=== PATIENT | male | born 1945 | race Caucasian/White ===

== ENCOUNTER → 2024-11-19 | Outpatient (CLI) | payer MEDICARE ==
[2024-11-19 16:53] LABS: BASOPHILS ABSOLUTE AUTO 0.04 K/mm3 (0.00-0.23); BASOPHILS PERCENT AUTO 0 % (0-2); EOSINOPHILS ABSOLUTE AUTO 0.13 K/mm3 (0.00-0.68); EOSINOPHILS PERCENT AUTO 1 % (0-6); Hematocrit 39.5 % (37.0-53.0); Hemoglobin 13.3 g/dL (13.5-17.5); IMMATURE GRAN ABSOLUTE AUTO 0.03 K/mm3 (0.00-0.10); IMMATURE GRAN PERCENT AUTO 0 % (0-1); LYMPHOCYTES ABSOLUTE AUTO 1.18 K/mm3 (0.84-5.20); LYMPHOCYTES PERCENT AUTO 12 % (21-46); MONOCYTES ABSOLUTE AUTO 0.83 K/mm3 (0.16-1.47); MONOCYTES PERCENT AUTO 9 % (4-13); Mean Corpuscular HGB 30.9 pg (26.0-34.0); Mean Corpuscular HGB Conc 33.7 g/dL (31.5-36.5); Mean Corpuscular Volume 92 fL (80-100); Mean Platelet Volume 10.2 fL (9.1-12.4); NEUTROPHILS ABSOLUTE AUTO 7.52 K/mm3 (1.96-9.15); NEUTROPHILS PERCENT AUTO 77 % (41-73); Platelet Count 285 K/mm3 (150-400); RDW Coefficient Variation 12.2 % (11.7-14.2); RDW Standard Deviation 41.3 fL (35.1-46.3); White Blood Cell Count 9.73 K/mm3 (4.00-11.30)
[2024-11-19 17:03] LABS: Albumin, Blood 3.1 g/dL (3.4-5.0); Albumin/Globulin Ratio 0.6 (0.8-1.8); Bilirubin, Total 0.5 mg/dL (0.1-1.0); Bun/Creatinine Ratio 24.4 (12.0-20.0); Calcium, Blood 9.9 mg/dL (8.5-10.1); Creatinine, Blood 1.23 mg/dL (0.60-1.20); Globulin, Blood 5.5 g/dL (2.2-4.0); Total Protein, Blood 8.6 g/dL (6.4-8.2)
== END ==
LOC: LAB 16:47 → LAB SHORT 16:47
PROVIDERS: Physician Assistant Medical
DX: R10.84 Generalized abdominal pain (principal)
CPT/HCPCS: 80053; 83690; 85025

== ENCOUNTER 2024-11-29 09:53 | Emergency (ER) | payer MEDICARE ==
[~2024-11-29] VITALS: Ht 177.8 cm; Wt 79.4 kg
[2024-11-29 10:01] VITALS: BP 133/96
[2024-11-29 10:51] LABS: Source, Urine Clean Catch
[2024-11-29 11:30] LABS: Appearance, Urine Clear (Clear); Bilirubin, Urine Neg (Neg); Blood, Urine Neg (Neg); Color, Urine Yellow (P-Yellow); Glucose Qualitative, Urine Neg (Neg); Ketones, Urine Neg (Neg); Leukocyte Esterase, Urine Neg (Neg); Nitrite, Urine Neg (Neg); Protein, Urine Neg (Neg); Urobilinogen, Urine NORM (Normal)
[2024-11-29] MEDS ORDERED: Cyclobenzaprine HCl 10 MG Tab PO ONE (12:50)
[2024-11-29] MEDS ORDERED: Ketorolac Tromethamine 15mg Vial IM ONE (12:50)
[2024-11-29] MEDS ORDERED: CYCL10 PO (13:00)
[2024-11-29] MEDS ORDERED: IBUP600 PO (13:00)
[2024-11-29] MEDS ORDERED: FAMO20 PO (13:00)
== END 2024-11-29 13:48 | disposition home or self-care (01) ==
LOC: ER 09:53
PROVIDERS: Student in an Organized Health Care Education/Training Program
DX: M54.50 Low back pain, unspecified (principal); G89.29 Other chronic pain
CPT/HCPCS: 81003; 96372; 99283-25; A9270; J1885

== ENCOUNTER 2025-09-29 11:01 | Emergency (ER) | payer MEDICARE, OTHER ==
[~2025-09-29] VITALS: Ht 177.8 cm; Wt 77.1 kg
[~2025-09-29 11:01] MED LIST: CYCL10 PO; FAMO20 PO; IBUP600 PO
[2025-09-29 11:37] LABS: BASOPHILS ABSOLUTE AUTO 0.04 K/mm3 (0.00-0.23); BASOPHILS PERCENT AUTO 1 % (0-2); EOSINOPHILS ABSOLUTE AUTO 0.20 K/mm3 (0.00-0.68); EOSINOPHILS PERCENT AUTO 3 % (0-6); Hematocrit 36.9 % (37.0-53.0); Hemoglobin 11.9 g/dL (13.5-17.5); IMMATURE GRAN ABSOLUTE AUTO 0.02 K/mm3 (0.00-0.10); IMMATURE GRAN PERCENT AUTO 0 % (0-1); LYMPHOCYTES ABSOLUTE AUTO 1.78 K/mm3 (0.84-5.20); LYMPHOCYTES PERCENT AUTO 23 % (21-46); MONOCYTES ABSOLUTE AUTO 0.70 K/mm3 (0.16-1.47); MONOCYTES PERCENT AUTO 9 % (4-13); Mean Corpuscular HGB Conc 32.2 g/dL (31.5-36.5); Mean Corpuscular Volume 95 fL (80-100); NEUTROPHILS ABSOLUTE AUTO 4.92 K/mm3 (1.96-9.15); NEUTROPHILS PERCENT AUTO 64 % (41-73); NRBC ABSOLUTE 0.00 K/mm3 (0.00-0.02); NRBC Auto 0.0 /100 WBC (0.0-0.2); Platelet Count 204 K/mm3 (150-400); RDW Coefficient Variation 13.2 % (11.7-14.2); RDW Standard Deviation 46.0 fL (35.1-46.3)
[2025-09-29 12:04] LABS: Alanine Aminotransfer (ALT/SGP 16.0 U/L (12-78); Albumin, Blood 3.6 g/dL (3.4-5.0); Albumin/Globulin Ratio 1.0 (0.8-1.8); Anion Gap 6.0 mmol/L (3-11); Aspartate Aminotrans (AST/SGOT 18.0 U/L (12-37); Bilirubin, Total 0.4 mg/dL (0.1-1.0); Blood Urea Nitrogen 20.0 mg/dL (8-24); CO2, Blood 25.0 mmol/L (21-32); Calcium, Blood 9.7 mg/dL (8.5-10.1); Chloride, Blood 111.0 mmol/L (98-108); Creatinine, Blood 1.03 mg/dL (0.60-1.20); Globulin, Blood 3.7 g/dL (2.2-4.0); Glucose, Blood 116.0 mg/dL (70-99); Potassium, Blood 3.9 mmol/L (3.5-5.5); Sodium, Blood 138.0 mmol/L (136-145); Total Protein, Blood 7.3 g/dL (6.4-8.2)
[2025-09-29 12:15] LABS: Influenza A, PCR NEGATIVE (NEGATIVE); Influenza B, PCR NEGATIVE (NEGATIVE); Resp Syncytial Virus, PCR NEGATIVE (NEGATIVE); SARS-Cov-2 (COVID-19) PCR, MMC NEGATIVE (NEGATIVE)
[2025-09-29] MEDS ORDERED: Furosemide 10 MG / ML 2ML Vial IV ONE (13:45)
[2025-09-29 15:15] VITALS: BP 133/60
== END 2025-09-29 15:57 | disposition left against medical advice (07) ==
LOC: ER 11:01
PROVIDERS: Physician Assistant
DX: I24.9 Acute ischemic heart disease, unspecified (principal); I50.9 Heart failure, unspecified; Z59.89 Other problems related to housing and economic circumstances; Z79.899 Other long term (current) drug therapy
CPT/HCPCS: 71046; 80053; 83690; 83880; 84484; 85025; 87637; 93005; 93010; 96374; 99284-25; J1938